=== PATIENT | male | born 1995 | race African-American/Black ===

== ENCOUNTER 2019-09-09 15:26 | Emergency (ER) | payer OTHER ==
[~2019-09-09] VITALS: Ht 182.9 cm; Wt 113.4 kg
[2019-09-09 17:27] VITALS: BP 145/70; TEMP 98
== END 2019-09-09 17:30 | disposition home or self-care (01) ==
LOC: ED 15:26
DX: M54.41 Lumbago with sciatica, right side (principal); G89.29 Other chronic pain; L73.1 Pseudofolliculitis barbae
CPT/HCPCS: 96372; 99283; J1885; J2930

== ENCOUNTER 2019-09-11 08:20 | Outpatient (CLI) | payer OTHER | END 2019-09-11 23:16 | disposition home or self-care (01) | LOC: RAD 08:20 | DX: M54.5 Low back pain (principal); R63.5 Abnormal weight gain; R51 Headache; I10 Essential (primary) hypertension ==